=== PATIENT | male | born 1990 | race African-American/Black ===

== ENCOUNTER 2016-06-14 16:59 | Emergency (ER) | payer MEDICAID ==
[~2016-06-14] VITALS: Ht 165.1 cm; Wt 85.7 kg
[2016-06-14 18:51] VITALS: BP 124/72
== END 2016-06-14 18:51 | disposition home or self-care (01) ==
LOC: ED 16:59
DX: J02.9 Acute pharyngitis, unspecified (principal); J45.901 Unspecified asthma with (acute) exacerbation; Z79.899 Other long term (current) drug therapy

== ENCOUNTER 2016-07-12 16:17 | Emergency (ER) | payer SELFPAY ==
[2016-07-12 16:21] VITALS: BP 127/72
== END 2016-07-12 17:24 | disposition home or self-care (01) ==
LOC: ED 16:17
DX: K14.0 Glossitis (principal); J45.909 Unspecified asthma, uncomplicated; Z79.899 Other long term (current) drug therapy

== ENCOUNTER 2017-01-21 13:37 | Emergency (ER) | payer MEDICAID ==
[2017-01-21 13:56] VITALS: BP 137/71
== END 2017-01-21 15:23 | disposition home or self-care (01) ==
LOC: ED 13:37
DX: J20.9 Acute bronchitis, unspecified (principal)
CPT/HCPCS: Q0092

== ENCOUNTER 2018-06-17 10:07 | Emergency (ER) | payer SELFPAY ==
[~2018-06-17] VITALS: Ht 165.1 cm; Wt 83.0 kg
[2018-06-17 10:11] VITALS: Ht 165.1 cm; Wt 83.0 kg
[2018-06-17 10:16] VITALS: BP 131/78
== END 2018-06-17 10:38 | disposition home or self-care (01) ==
LOC: ED 10:07
DX: B34.9 Viral infection, unspecified (principal); J45.909 Unspecified asthma, uncomplicated